=== PATIENT | female | born 1965 | race Caucasian/White ===

== ENCOUNTER → 2024-02-01 13:22 | Outpatient (REF) | payer OTHER, SELFPAY | LOC: HWWDC 13:22 | PROVIDERS: ATTENDING PHYSICIAN Obstetrics & Gynecology; FAMILY PHYSICIAN Family Medicine | DX: Z12.31 Encounter for screening mammogram for malignant neoplasm of breast (principal) | CPT/HCPCS: 77063; 77067 ==

== ENCOUNTER 2024-03-14 11:24 | Outpatient (RCR) | payer OTHER, SELFPAY | END 2024-03-14 23:59 | disposition home or self-care (01) | LOC: ROT 11:24 | PROVIDERS: ATTENDING PHYSICIAN Physician Assistant Medical; FAMILY PHYSICIAN Family Medicine | DX: S62.102D Fracture of unspecified carpal bone, left wrist, subsequent encounter for fracture with routine healing (principal); Z73.6 Limitation of activities due to disability; X58.XXXD Exposure to other specified factors, subsequent encounter | CPT/HCPCS: 97010; 97022; 97110; 97140; 97166; 97535 ==

== ENCOUNTER 2024-04-10 11:46 | Outpatient (RCR) | payer OTHER, SELFPAY | END 2024-04-10 23:59 | disposition home or self-care (01) | LOC: ROT 11:46 | PROVIDERS: ATTENDING PHYSICIAN Physician Assistant Medical; FAMILY PHYSICIAN Family Medicine | DX: S62.102D Fracture of unspecified carpal bone, left wrist, subsequent encounter for fracture with routine healing (principal); Z73.6 Limitation of activities due to disability | CPT/HCPCS: 97010; 97022; 97110; 97140 ==

== ENCOUNTER 2024-05-01 11:54 | Outpatient (RCR) | payer OTHER, SELFPAY | END 2024-05-01 23:59 | disposition home or self-care (01) | LOC: ROT 11:54 | PROVIDERS: ATTENDING PHYSICIAN Physician Assistant Medical; FAMILY PHYSICIAN Family Medicine | DX: S62.102D Fracture of unspecified carpal bone, left wrist, subsequent encounter for fracture with routine healing (principal); Z73.6 Limitation of activities due to disability | CPT/HCPCS: 97010; 97110; 97140; 97530 ==

== ENCOUNTER → 2025-02-28 10:10 | Outpatient (REF) | payer OTHER, SELFPAY | LOC: HWWDC 10:10 | PROVIDERS: ATTENDING PHYSICIAN Obstetrics & Gynecology; FAMILY PHYSICIAN Family Medicine | DX: Z12.31 Encounter for screening mammogram for malignant neoplasm of breast (principal) | CPT/HCPCS: 77063; 77067 ==

== ENCOUNTER 2025-09-07 16:10 | Emergency (ER) | payer OTHER, SELFPAY ==
[2025-09-07 16:15] VITALS: BP 196/106
[2025-09-07 16:40] VITALS: BMI 28.0
[2025-09-07] MEDS: DILAUDID 1 MG IV (16:44)
[2025-09-07] MEDS: NSS 1000 IV (16:44)
[2025-09-07 16:58] LABS: Urine Character Clear (Clear)
--- NOTE | 2025-09-07 17:00 | ED.GENMED ---
History of Present Illness
General
Chief Complaint: Flank Pain
Source: patient
Exam Limitations: none
Time Seen by Provider: 09/07/25 16:28
History of Present Illness
History of Present Illness:
60yoF with no significant past medical history presenting for evaluation of flank pain. Patient reports a sudden onset of right flank pain while in the grocery store less than 1 hour prior to arrival. Pain is severe and is coming in waves. She
has issues with her back normally but has never experienced something like this before. She took 600 mg ibuprofen prior to arrival without much relief. She is otherwise asymptomatic and denies any fevers, nausea, vomiting, difficulty urinating,
shortness of breath.
Phy Exam
Physical Exam
Physical Exam:
Patient pacing around exam room, clutching R flank
General Physical Exam
General Presentation: moderate distress
General age: appears stated age
General Skin: warm
General Habitus: normal
General Mental: alert
ENT Exam
ENT Exam: normocephalic
Pulmonary Exam
Pulmonary Exam: no respiratory distress
Gastrointestinal Exam
Gastrointestinal Exam: non tender, soft, non distended and no cva tenderness
Neurological Exam
Neurological Exam: alert
[place] Coma Scale
Eye Opening: Spontaneous
Verbal Response: Oriented
Motor Response: Obeys Commands
GCS Total Score: 15
Skin Exam
Skin Exam: normal color and warm/dry
Psychiatric Exam
Psychiatric Exam: anxious
Course
Orders/Labs/Results
Orders:
Orders
09/07/25 16:31
CT Abd/pel Without Iv Or Oral Urgent
Comment:
Reason For Exam: R flank pain
0.9% Sodium Chloride 1000 ml [Nss] 1,000 ml IV BOLUS
HYDROmorphone [Dilaudid] 1 mg IV NOW STA
09/07/25 16:50
Complete Blood Count/With Diff Urgent
Comprehensive Metabolic Panel Urgent
Urinalysis Reflex To Culture Urgent
Date Specimen was Collected: 09/07/25
Time Specimen was Collected: 16:36
Urine Microscopic Reflex Cult Urgent
Urine Culture Urgent
ADAMARIS Source: U
Specimen Description:
Date Specimen was Collected: 09/07/25
Time Specimen was Collected: 16:36
09/07/25 18:52
Cefdinir [Omnicef] 300 mg PO NOW STA
09/07/25 20:16
Cefdinir [Omnicef] 300 mg PO NOW STA
Abnormal Lab Results
09/07/25
16:50
BUN 18 H mg/dl
(7-17)
Glucose 125 H mg/dl
(70-99)
Leukocyte Esterase Rfl 2+ A
(Negative)
Urine WBC (Reflex) 11-15 A /HPF
(0-5)
Urine Bacteria (Reflex) Many A
(Negative)
Urine Albumin (Reflex) 1+ A
(Neg - Trace)
09/07/25 16:50
09/07/25 16:50
Vital Signs
Initial and Last Documented VS:
Initial Vital Signs
Temp Pulse Resp BP Pulse Ox
97.5 F 94 16 196/106 100
09/07/25 16:15 09/07/25 16:15 09/07/25 16:15 09/07/25 16:15 09/07/25 16:15
Last Documented Vital Signs
Temp Pulse Resp BP Pulse Ox
97.5 F 94 16 196/106 100
09/07/25 16:15 09/07/25 16:15 09/07/25 16:15 09/07/25 16:15 09/07/25 17:01
MDM/Problems Addressed
Differential Diagnosis Includes:
60yoF here with severe flank pain that started suddenly less than 1 hour ago. Pacing around exam room and appears uncomfortable. No trauma. No CVA tenderness. Differential diagnosis includes but is not limited to: kidney stone, pyelonephritis,
muscle spasm, consider AAA
Initial ED plan: Check CBC, CMP, UA, and CT abdomen without contrast to evaluate for stone. IV Dilaudid and fluid bolus for symptoms.
*Pulse Oximetry
SaO2: 100
Oxygen Mode of Delivery: Room air
Patient hypoxic: no
*Critical Care Note
Total Time (30-74mins, 75-104mins- exclusive of procedures): Not Applicable
Update Note
Update Note:
Labs unremarkable including normal white count and renal function. UA with 11-15 WBCs and many bacteria. CT negative for acute findings. Specifically, no evidence of hydronephrosis or stone. 1cm hepatic structure noted incidentally for which
radiology is recommending outpatient MRI. Patient informed of this finding and copy of radiology report given. Patient feeling significantly improved on reassessment and appears uncomfortable. Unclear etiology of symptoms, ?passed stone. Will cover
with abx given abnormal urinalysis. She was started on a course of cefdinir. Advised f/u with PCP and ED return precautions reviewed.
ED Attending Note
-
Portions of this chart may have been created with voice recognition software.� Occasional wrong word or��sound alike� substitutions may have occurred due to the inherent limitations of voice recognition software.
Discharge Plan
Departure
Patient Disposition: Home (Routine Discharge)
Date of Disposition: 09/07/25
Time of Disposition: 20:12
Patient with high blood pressure during this ER visit?: Yes
Discharge Problem:
Right flank pain, Urinary tract infection
Instructions: Flank Pain (DC)
Prescriptions:
New
cefdinir 300 mg capsule
300 mg PO BID Qty: 13 0RF
Referrals:
Allison Ashton DO [Family Provider, Family Practice]
Activity Restrictions/Additional Instructions:
Take antibiotics as prescribed. Drink plenty of fluids. You may take Tylenol and ibuprofen as needed for pain.
The radiologist saw a small spot on your liver today. You will need an outpatient MRI for further evaluation of this.
Please follow-up with your family doctor. Return to the ER with any worsening symptoms including severe pain or fevers.
Interventions
Interventions:
*Risk Screen - Suicide Last Done: 09/07/25 16:15
*Neglect/Abuse Screening Last Done: 09/07/25 16:15
*ED- Fall Risk Assessment Last Done: 09/07/25 16:41
*ED COVID-19 Vaccine History Last Done: 09/07/25 16:41
*ED Influenza Vaccine History Last Done: 09/07/25 16:41
SM-Wpuyha-Cqpfkqfdbd Assessment Last Done: 09/07/25 16:41
ED-Female Genitourinary Assessment Last Done: 09/07/25 16:41
Discharge Date and Time
Print Language: [id number]
[2025-09-07 17:02] LABS: Hematocrit 39.4 % (37.0-47.0); Hemoglobin 13.8 g/dL (12.0-16.0); Mean Corp Hgb Conc. 35.0 g/dL (33.0-37.0); Mean Corpuscular Volume 82.1 fL (81.0-99.0); Nucleated Red Blood Cells % 0 %; Platelet Count 307 10^3/uL (130-400); Red Cell Dist. Width 12.0 % (11.5-14.5)
[2025-09-07 17:05] LABS: Urine Squamous Cell 0-2 /LPF (Few)
[2025-09-07 17:06] LABS: Urine Red Blood Cell 0-2 /HPF (0-2)
[2025-09-07 17:12] LABS: ALT (SGPT) 17 U/L (0-35); AST (SGOT) 21 U/L (14-36); Albumin 4.5 g/dl (3.5-5.0); Alkaline Phosphatase 98 U/L (38-126); Blood Urea Nitrogen 18 mg/dl (7-17); Calcium 9.7 mg/dl (8.4-10.2); Carbon Dioxide 24 mmol/L (22-30); Chloride 105 mmol/L (98-107); Estimated Creatinine Clearance 73 ml/min; Glucose 125 mg/dl (70-99); Potassium 3.7 mmol/L (3.5-5.1); Sodium 136 mmol/L (135-145); Total Protein 7.4 g/dl (6.3-8.2); eGFR > 60.00
[2025-09-07 20:20] VITALS: BP 145/83
[2025-09-07] MEDS: OMNICEF 300 MG PO (20:25)
== END 2025-09-07 20:27 | disposition home or self-care (01) ==
LOC: EMR 16:10
PROVIDERS: Physician Assistant; EMERGENCY PHYSICIAN Emergency Medicine; FAMILY PHYSICIAN Family Medicine
DX: N39.0 Urinary tract infection, site not specified (principal)
CPT/HCPCS: 99284; 96374; 96361; 74176; 80053; 81003; 81015; 85025; 87086

== ENCOUNTER → 2025-10-06 08:24 | Outpatient (REF) | payer OTHER, SELFPAY | LOC: MRI 3T 08:24 | PROVIDERS: ATTENDING PHYSICIAN Family Medicine | DX: R16.0 Hepatomegaly, not elsewhere classified (principal) | CPT/HCPCS: 74183; A9575 ==